=== PATIENT | male | born 1970 | race Hispanic/Latino ===

== ENCOUNTER → 2019-08-28 | Day surgery (SDC) | payer OTHER ==
[~2019-08-28] MED LIST: D-AMPHETAMINE PO; FENTANYL CITRATE/PF 100MCG/2 ML INJ ONE; GLIMEPIRIDE2 MG PO; HYOSCYAMINE 0.125 MG TAB ONE; LEVOTHYROXINE75 MCG PO; LIDOCAINE HCL 2% LOCAL INJ 5 ML SDV VIAL INJ ONE; LISINOPRIL10 MG PO; MIDAZOLAM HCL 2 MG/2 ML VIAL ONE; NKM; PROPOFOL IV EMULSION 10 MG/ML 50 ML VIAL ONE; SIMVASTATIN10 MG PO; SIMVASTATIN40 MG PO; TREMFYA100 MG/1 M INJ; VIT D2 PO
--- OUTSIDE RECORDS SUMMARY | 2019-08-28 10:03 | XMS REPORT ---
Author Author [facility] Address Unknown Phone Unavailable Care Team Providers Care Atmospheric Technician Name Role Phone Unavailable Unavailable Problems This patient has no known problems. Allergies, Adverse Reactions, Alerts This patient has no known allergies or adverse reactions. Medications This patient has no known medications.
[2019-08-28 14:40] VITALS: BP 128/94
--- NOTE | 2019-08-28 14:52 | Operative Report ---
DATE OF PROCEDURE: 08/28/2019 SURGEON: Cyrus Ambrosio MD PROCEDURE: Colonoscopy and polypectomy with biopsies. INDICATIONS FOR PROCEDURE: Surveillance colonoscopy, personal history of colon polyps, brother and father with colon cancer. MEDICATIONS: The patient was done under MAC, please see anesthesiologist's note. PROCEDURE IN DETAIL: With the patient in left lateral decubitus position, a flexible fiberoptic Olympus colonoscope was inserted into the rectum with ease and advanced all the way to the cecum. Mucosa overlying the cecum appeared to be within normal limits. One polyp was removed per cold biopsy forceps from the ascending colon. The transverse appeared to be within normal limits. Mild patchy inflammatory changes were noted in the left colon and random biopsies were obtained. Three polyps were hot biopsied from the sigmoid colon. One polyp was hot biopsied from the rectum. The scope was then retroflexed into the distal rectum and small internal hemorrhoids were noted, none of which was actively bleeding. The scope was then straightened out, it was subsequently withdrawn. The patient tolerated the procedure well. IMPRESSION: 1. Ascending colon polyp removed per cold biopsy forceps. 2. Mild patchy left-sided colitis. 3. Sigmoid colon polyps x3, hot biopsied. 4. Rectal polyp x1, hot biopsied. 5. Internal hemorrhoids, none actively bleeding. PLAN: Follow up histology. Initiate high-fiber, low-fat diet. Initiate high-fiber supplement. We will check the patient for Timmons syndrome. If the patient's test is positive for Timmons syndrome, then he will need to have another colonoscopy in one year. Cyrus Ambrosio MD [facility] [place] /[id number] cc: Waldemar Clifford MD
== END | disposition home or self-care (01) ==
LOC: OR 09:58
PROVIDERS: ATTEND Internal Medicine Gastroenterology
DX: K22.70 Barrett's esophagus without dysplasia (principal); K20.9 Esophagitis, unspecified; K29.60 Other gastritis without bleeding; K62.1 Rectal polyp; Z80.0 Family history of malignant neoplasm of digestive organs; Z68.38 Body mass index [BMI] 38.0-38.9, adult; Z86.010 Personal history of colon polyps; E78.00 Pure hypercholesterolemia, unspecified; E03.9 Hypothyroidism, unspecified; E11.9 Type 2 diabetes mellitus without complications; I10 Essential (primary) hypertension; Z01.810 Encounter for preprocedural cardiovascular examination; K51.50 Left sided colitis without complications; K64.8 Other hemorrhoids; D12.2 Benign neoplasm of ascending colon
CPT/HCPCS: 36415; 45380; 45384; 82948; 93005; J2001; J2250; J2704; J3010; 45378